=== PATIENT | female | born 1965 | race Hispanic/Latino ===

== ENCOUNTER 2020-10-16 12:22 | Outpatient (CLI) | payer BC ==
--- NOTE | 2020-10-18 16:31 | MMO ---
Bilateral MAMMO Bilat Screen [facility]. CLINICAL HISTORY: Patient is 55 years old and is seen for screening. The patient has no family history of breast cancer. The patient has no personal history of cancer. The patient has a history of left needle biopsy in [place] - benign. VIEWS: The views performed were: bilateral craniocaudal with tomosynthesis and bilateral mediolateral oblique with tomosynthesis. FILMS COMPARED: The present examination has been compared to prior imaging studies performed at This study has been interpreted with the assistance of computer-aided detection. MAMMOGRAM FINDINGS: There are scattered fibroglandular densities. Finding 1: There is a focal asymmetry measuring 9 millimeters with spiculated margins seen in the middle region of the right breast at 12 o'clock. Finding 2: There are stable benign appearing calcifications seen in both breasts. IMPRESSION: FINDING 1: FOCAL ASYMMETRY IN THE RIGHT BREAST REQUIRES ADDITIONAL EVALUATION. ADDITIONAL PROJECTIONS (RIGHT CRANIOCAUDAL SPOT COMPRESSION; RIGHT MEDIOLATERAL OBLIQUE SPOT COMPRESSION; RIGHT MEDIOLATERAL; AND RIGHT MEDIOLATERAL SPOT COMPRESSION) ARE RECOMMENDED. AN ULTRASOUND EXAM IS RECOMMENDED. FINDING 2: STABLE CALCIFICATIONS IN BOTH BREASTS ARE BENIGN. THE RESULTS OF THIS EXAM WERE SENT TO THE PATIENT. ACR BI-RADS Category 0 - Incomplete: Need additional imaging evaluation. [facility] will notify the patient of the need for additional imaging services. MAMMOGRAPHY NOTE: 1. A negative mammogram report should not delay a biopsy if a dominant of clinically suspicious mass is present. 2. Approximately 10% to 15% of breast cancers are not detected by mammography. 3. Adenosis and dense breasts may obscure an underlying neoplasm. Reported by: ALBERTO STEWART MD Electonically Signed: [id number]
== END 2020-10-16 12:23 | disposition home or self-care (01) ==
LOC: BICMAMMO 12:22
PROVIDERS: ATTEND Physician Assistant
DX: Z12.31 Encounter for screening mammogram for malignant neoplasm of breast (principal); R92.1 Mammographic calcification found on diagnostic imaging of breast; N64.89 Other specified disorders of breast; Z91.89 Other specified personal risk factors, not elsewhere classified
CPT/HCPCS: 77063; 77067

== ENCOUNTER 2020-10-22 08:41 | Outpatient (CLI) | payer BC | END 2020-10-22 08:42 | disposition home or self-care (01) | LOC: BICMAMMO 08:41 | PROVIDERS: ATTEND Physician Assistant | DX: R92.2 Inconclusive mammogram (principal); N63.10 Unspecified lump in the right breast, unspecified quadrant | CPT/HCPCS: G0279 ==

== ENCOUNTER → 2020-11-01 | Day surgery (SDC) | payer BC | LOC: BICULT 12:01 | PROVIDERS: ATTEND Physician Assistant | PROC: 0H9T3ZX Drainage of Right Breast, Percutaneous Approach, Diagnostic (ICD-10-PCS; principal; 2020-11-01) | DX: N60.31 Fibrosclerosis of right breast (principal) | CPT/HCPCS: 19083; 88305 ==

== ENCOUNTER 2020-12-10 10:23 | Day surgery (SDC) | payer BC ==
[2020-12-07 12:17] VITALS: BMI 33.8
[2020-12-10] MEDS ORDERED: Midazolam HCl 2 mg/2 ml Vial ONE (11:47)
[2020-12-10] MEDS ORDERED: Lidocaine 1% PF 5 ML VIAL ONE (12:00)
== END 2020-12-10 14:45 | disposition home or self-care (01) ==
LOC: SDC/OP 10:23
PROVIDERS: ATTEND Internal Medicine Gastroenterology
DX: K76.0 Fatty (change of) liver, not elsewhere classified (principal); K80.20 Calculus of gallbladder without cholecystitis without obstruction; J98.11 Atelectasis; Z79.899 Other long term (current) drug therapy
CPT/HCPCS: 74183; J2250

== ENCOUNTER 2021-01-16 14:37 | Outpatient (CLI) | payer BC | END 2021-01-16 14:38 | disposition home or self-care (01) | LOC: DTY/OP 14:37 | PROVIDERS: ATTEND Physician Assistant Medical | DX: K75.81 Nonalcoholic steatohepatitis (NASH) (principal); E66.3 Overweight; E78.00 Pure hypercholesterolemia, unspecified | CPT/HCPCS: 97802 ==